=== PATIENT | female | born 1940 | race Caucasian/White ===

== ENCOUNTER 2016-09-08 04:11 | Inpatient (IN) | payer MEDICARE ==
[~2016-09-08] VITALS: Ht 157.5 cm; Wt 54.4 kg
[~2016-09-08 04:11] MED LIST: ACET-868 PO; ASCO500C16 PO; ASPI81TA2 PO; ATOR40TA PO; FURO20TA PO; HYDR-4076 PO; ISOS20TA8 PO; LOPE1LIQ56 PO; MAGN400O6 PV; ZINC220C8 PO
[2016-09-08] MEDS ORDERED: DEXAMETHASONE SOD PHOSPHATE 10 MG/ML VIAL IV ONE (04:30)
[2016-09-08] MEDS ORDERED: IPRATROPIUM NEB FS 0.5 MG/2.5 ML AMPUL.NEB NEB ONE (04:30)
[2016-09-08] MEDS ORDERED: ALBUTEROL FS 2.5 MG/3 ML VIAL.NEB CONTNEB ONE (04:30)
[2016-09-08] MEDS ORDERED: ALBUTEROL FS 2.5 MG/3 ML VIAL.NEB ONE (04:32)
[2016-09-08] MEDS ORDERED: IPRATROPIUM NEB FS 0.5 MG/2.5 ML AMPUL.NEB ONE (04:32)
[2016-09-08] MEDS ORDERED: DEXAMETHASONE SOD PHOSPHATE 10 MG/ML VIAL ONE (04:47)
[2016-09-08] MEDS ORDERED: ONDANSETRON HCL/PF 4 MG/2 ML VIAL ONE (04:56)
[2016-09-08 04:59] LABS: ABG BASE EXCESS -2.2 mmol/L; ABG HCO3 22.1 mmol/L; ABG PCO2 36.3 mmHg (35.0-45.0); ABG PH 7.402 (7.350-7.450); ABG PO2 54.9 mmHg (75.0-100.0); ABG TOTAL HEMOGLOBIN 11.8 G/dL (12.0-16.0); O2Hb 85.7 % (94.0-97.0)
[2016-09-08 05:15] LABS: BASOPHILS # (AUTO) 0.1 /CMM (0.0-0.2); BASOPHILS % (AUTO) 0.7 % (0.0-2.0); DIFF TOTAL % 100 %; EOSINOPHILS # (AUTO) 0.1 /CMM (0.0-0.7); EOSINOPHILS % (AUTO) 1.2 % (0.0-6.0); HEMATOCRIT 32 % (33-45); HEMOGLOBIN 10.5 g/dL (11.5-14.8); LYMPHOCYTES # (AUTO) 1.4 /CMM (0.8-4.8); LYMPHOCYTES % (AUTO) 12.8 % (20.0-44.0); MEAN CORPUSCULAR HEMOGLOBIN 34 PG (26.0-33.0); MEAN CORPUSCULAR HGB CONC 33 g/dl (31.0-36.0); MEAN CORPUSCULAR VOLUME 102 fL (82-100); MONOCYTES # (AUTO) 0.7 /CMM (0.1-1.30); NEUTROPHILS # (AUTO) 8.9 /CMM (1.8-8.9); NEUTROPHILS % (AUTO) 79.3 % (43.0-81.0); PLATELET COUNT (AUTO) 309 /CMM (150-450); RED BLOOD CELL COUNT(AUTO) 3.09 MIL/uL (4.0-5.2); WHITE BLOOD COUNT (AUTO) 11.2 K/uL (4.3-11.0)
[2016-09-08 05:25] LABS: CALCIUM, SERUM 8.6 mg/dL (8.5-10.1); CREATININE 3.1 mg/dL (0.6-1.3); POTASSIUM 4.5 mmol/L (3.5-5.1)
[2016-09-08 05:33] LABS: TROPONIN I 0.334 ng/mL (0.00-0.056)
[2016-09-08] MEDS ORDERED: IV SET PRIMARY PUMP SET 1 EA INFUS.SET MC ONE ×3 (06:10→13:38)
[2016-09-08] MEDS ORDERED: LEVOFLOXACIN 750 MG /D5W 150ML 150 ML IV ONE (06:10)
[2016-09-08] MEDS: LEVOFLOXACIN 750 MG /D5W 150ML 750 MG in PREMIX 1 EA IV SCH (06:25)
[2016-09-08] MEDS ORDERED: ASPIRIN 81 MG TAB.CHEW ONE (06:43)
[2016-09-08] MEDS ORDERED: ASPIRIN 325 MG TABLET PO ONE (07:00)
[2016-09-08] MEDS ORDERED: PIPERACILLIN /TAZOBACTAM 3.375 G in IV D5W 50 ML IV ONE (07:30)
[2016-09-08] MEDS ORDERED: VANCOMYCIN 1 GM in IV D5W 250 ML IV ONE (07:30)
[2016-09-08 09:00] VITALS: BP 150/54
[2016-09-08] MEDS ORDERED: IPRATROPIUM NEB FS 0.5 MG/2.5 ML AMPUL.NEB NEB PRN (11:30)
[2016-09-08] MEDS ORDERED: DEXTROSE 50%-WATER 50 ML DISP.SYRIN IV PRN (11:30)
[2016-09-08] MEDS: BLOOD SUGAR DIAGNOSTIC 1 EACH STRIP IN SCH ×3 (12:00→22:45)
[2016-09-08] MEDS: MONTELUKAST SODIUM (10MG) 10 MG TABLET PO SCH (12:16)
[2016-09-08] MEDS: methylPREDNISolone SOD SUCC 40 MG/ML VIAL IV SCH ×2 (12:16→23:05)
[2016-09-08] MEDS: INSULIN REGULAR, HUMAN 100 UNIT/ML 3 ML VIAL SQ PRN ×2 (13:35→17:16)
[2016-09-08] MEDS: ASPIRIN 81 MG TAB.CHEW PO SCH (13:46)
[2016-09-08] MEDS: CEFTRIAXONE 1 G in IV D5W 50 ML IV SCH (13:47)
[2016-09-08] MEDS: IPRATROPIUM NEB FS 0.5 MG/2.5 ML AMPUL.NEB NEB SCH ×3 (14:47→23:45)
[2016-09-08 16:00] VITALS: BP 144/70
[2016-09-08 20:20] VITALS: BP 137/71
[2016-09-08] MEDS: ATORVASTATIN 10 MG TABLET PO SCH (23:04)
[2016-09-09 00:49] VITALS: BP 152/59
[2016-09-09] MEDS: IPRATROPIUM NEB FS 0.5 MG/2.5 ML AMPUL.NEB NEB SCH ×7 (03:28→23:08)
[2016-09-09 04:46] VITALS: BP 132/61
[2016-09-09] MEDS: LEVOFLOXACIN 750 MG /D5W 150ML 750 MG in PREMIX 1 EA IV SCH (06:17)
[2016-09-09] MEDS ORDERED: IV SET PRIMARY PUMP SET 1 EA INFUS.SET MC ONE (06:20)
[2016-09-09] MEDS ORDERED: IV NS 0.9% 250 ML IV ONE (06:20)
[2016-09-09] MEDS ORDERED: SECONDARY IV SET 1 EA INFUS.SET MC ONE (06:20)
[2016-09-09] MEDS: methylPREDNISolone SOD SUCC 40 MG/ML VIAL IV SCH ×3 (06:25→20:00)
[2016-09-09] MEDS: BLOOD SUGAR DIAGNOSTIC 1 EACH STRIP IN SCH ×4 (06:38→21:34)
[2016-09-09 06:57] VITALS: BP 158/74
[2016-09-09] MEDS: ASPIRIN 81 MG TAB.CHEW PO SCH (08:45)
[2016-09-09] MEDS: MONTELUKAST SODIUM (10MG) 10 MG TABLET PO SCH (08:45)
[2016-09-09] MEDS: ACETAMINOPHEN 325 MG TABLET PO PRN ×2 (13:15→20:00)
[2016-09-09] MEDS: CEFTRIAXONE 1 G in IV D5W 50 ML IV SCH (13:15)
[2016-09-09] MEDS: DIPHENOXYLATE HCL/ATROP SULF 1 UDTAB TABLET PO PRN (13:45)
[2016-09-09 20:00] VITALS: BP 174/74
[2016-09-09] MEDS ORDERED: CLONIDINE HCL 0.1 MG TABLET ONE (21:21)
[2016-09-09] MEDS ORDERED: MENTHOL/CETYLPYRD (CEPACOL) 1 LOZ LOZENGE ONE (21:22)
[2016-09-09] MEDS ORDERED: CLONIDINE HCL 0.1 MG TABLET PO PRN (21:30)
[2016-09-09] MEDS ORDERED: MENTHOL/CETYLPYRD (CEPACOL) 1 LOZ LOZENGE PO PRN (21:30)
[2016-09-09] MEDS: ATORVASTATIN 10 MG TABLET PO SCH (21:35)
[2016-09-10] VITALS: BP 159/70
[2016-09-10] MEDS: IPRATROPIUM NEB FS 0.5 MG/2.5 ML AMPUL.NEB NEB SCH ×6 (03:24→23:06)
[2016-09-10 04:00] VITALS: BP 148/99
[2016-09-10] MEDS: methylPREDNISolone SOD SUCC 40 MG/ML VIAL IV SCH ×3 (04:23→22:21)
[2016-09-10] MEDS: BLOOD SUGAR DIAGNOSTIC 1 EACH STRIP IN SCH ×2 (07:30→11:27)
[2016-09-10 08:00] VITALS: BP 157/68
[2016-09-10] MEDS: MONTELUKAST SODIUM (10MG) 10 MG TABLET PO SCH (08:48)
[2016-09-10] MEDS: ASPIRIN 81 MG TAB.CHEW PO SCH (08:48)
[2016-09-10 10:00] VITALS: BP 157/68
[2016-09-10] MEDS: CEFTRIAXONE 1 G in IV D5W 50 ML IV SCH (11:22)
[2016-09-10] MEDS ORDERED: SECONDARY IV SET 1 EA INFUS.SET MC ONE (11:30)
[2016-09-10] MEDS: INSULIN REGULAR, HUMAN 100 UNIT/ML 3 ML VIAL SQ PRN (11:33)
[2016-09-10 16:00] VITALS: BP 157/93
[2016-09-10] MEDS: ISOSORBIDE DINITRATE (10MG) 10 MG TABLET PO SCH (16:22)
[2016-09-10] MEDS: hydrALAZINE HCL 25 MG TABLET PO SCH (16:23)
[2016-09-10 20:00] VITALS: BP 165/74
[2016-09-10] MEDS: ATORVASTATIN 10 MG TABLET PO SCH (22:22)
[2016-09-11] MEDS: IPRATROPIUM NEB FS 0.5 MG/2.5 ML AMPUL.NEB NEB SCH ×4 (04:00→23:44)
[2016-09-11] MEDS: methylPREDNISolone SOD SUCC 40 MG/ML VIAL IV SCH ×3 (04:00→21:02)
[2016-09-11 08:00] VITALS: BP 150/71
[2016-09-11] MEDS: MONTELUKAST SODIUM (10MG) 10 MG TABLET PO SCH (09:07)
[2016-09-11] MEDS: ASPIRIN 81 MG TAB.CHEW PO SCH (09:07)
[2016-09-11] MEDS: ISOSORBIDE DINITRATE (10MG) 10 MG TABLET PO SCH ×2 (09:08→17:37)
[2016-09-11] MEDS: hydrALAZINE HCL 25 MG TABLET PO SCH ×2 (09:08→17:37)
[2016-09-11] MEDS: CEFTRIAXONE 1 G in IV D5W 50 ML IV SCH (12:06)
[2016-09-11 16:00] VITALS: BP 164/76
[2016-09-11] MEDS: DIPHENOXYLATE HCL/ATROP SULF 1 UDTAB TABLET PO PRN (16:56)
[2016-09-11 20:00] VITALS: BP 174/78
[2016-09-11 20:32] VITALS: BP 174/78
[2016-09-11] MEDS: CARVEDILOL 3.125 MG TABLET PO SCH (21:03)
[2016-09-11] MEDS: ATORVASTATIN 10 MG TABLET PO SCH (21:04)
[2016-09-12] MEDS: IPRATROPIUM NEB FS 0.5 MG/2.5 ML AMPUL.NEB NEB SCH ×5 (03:03→23:08)
[2016-09-12] MEDS: methylPREDNISolone SOD SUCC 40 MG/ML VIAL IV SCH ×3 (04:08→21:56)
[2016-09-12] MEDS: ACETAMINOPHEN 325 MG TABLET PO PRN (04:08)
[2016-09-12 08:00] VITALS: BP 168/77
[2016-09-12] MEDS: ISOSORBIDE DINITRATE (10MG) 10 MG TABLET PO SCH ×2 (08:05→16:52)
[2016-09-12] MEDS: CARVEDILOL 3.125 MG TABLET PO SCH ×2 (08:05→21:58)
[2016-09-12] MEDS: hydrALAZINE HCL 25 MG TABLET PO SCH ×2 (08:06→16:52)
[2016-09-12] MEDS: MONTELUKAST SODIUM (10MG) 10 MG TABLET PO SCH (08:06)
[2016-09-12] MEDS: ASPIRIN 81 MG TAB.CHEW PO SCH (08:06)
[2016-09-12] MEDS: DIPHENOXYLATE HCL/ATROP SULF 1 UDTAB TABLET PO PRN ×3 (09:31→20:52)
[2016-09-12] MEDS: CEFTRIAXONE 1 G in IV D5W 50 ML IV SCH (11:17)
[2016-09-12 16:00] VITALS: BP 158/69
[2016-09-12 20:00] VITALS: BP 181/73
[2016-09-12] MEDS: ATORVASTATIN 10 MG TABLET PO SCH (21:59)
[2016-09-13] MEDS: IPRATROPIUM NEB FS 0.5 MG/2.5 ML AMPUL.NEB NEB SCH ×4 (02:59→16:05)
[2016-09-13] MEDS: methylPREDNISolone SOD SUCC 40 MG/ML VIAL IV SCH ×2 (05:00→13:34)
[2016-09-13] MEDS: DIPHENOXYLATE HCL/ATROP SULF 1 UDTAB TABLET PO PRN ×2 (06:58→15:29)
[2016-09-13 08:00] VITALS: BP 165/67
[2016-09-13] MEDS: ASPIRIN 81 MG TAB.CHEW PO SCH (09:16)
[2016-09-13] MEDS: MONTELUKAST SODIUM (10MG) 10 MG TABLET PO SCH (09:16)
[2016-09-13] MEDS: ISOSORBIDE DINITRATE (10MG) 10 MG TABLET PO SCH (09:17)
[2016-09-13 09:18] VITALS: BP 165/67
[2016-09-13] MEDS: hydrALAZINE HCL 25 MG TABLET PO SCH (09:18)
[2016-09-13] MEDS: CARVEDILOL 3.125 MG TABLET PO SCH (09:18)
[2016-09-13] MEDS: CEFTRIAXONE 1 G in IV D5W 50 ML IV SCH (11:17)
== END 2016-09-13 16:15 | disposition home or self-care (01) | DRG 193 ==
LOC: ER 04:12 → TELE 08:38 → MED 09-10 11:02
PROVIDERS: ADMIT Internal Medicine; ATTEND Internal Medicine
PROC: 5A1D60Z (ICD-10-PCS; principal; 2016-09-08)
DX: J15.9 Unspecified bacterial pneumonia (principal); N18.6 End stage renal disease; J96.90 Respiratory failure, unspecified, unspecified whether with hypoxia or hypercapnia; I21.4 Non-ST elevation (NSTEMI) myocardial infarction; J44.1 Chronic obstructive pulmonary disease with (acute) exacerbation; I13.2 Hypertensive heart and chronic kidney disease with heart failure and with stage 5 chronic kidney disease, or end stage renal disease; I50.22 Chronic systolic (congestive) heart failure; I25.10 Atherosclerotic heart disease of native coronary artery without angina pectoris; Z99.2 Dependence on renal dialysis; Z95.1 Presence of aortocoronary bypass graft; Z91.041 Radiographic dye allergy status; D63.8 Anemia in other chronic diseases classified elsewhere; E03.9 Hypothyroidism, unspecified; E87.5 Hyperkalemia; I25.5 Ischemic cardiomyopathy; J45.909 Unspecified asthma, uncomplicated; Z87.891 Personal history of nicotine dependence; T38.0X5A Adverse effect of glucocorticoids and synthetic analogues, initial encounter; R73.9 Hyperglycemia, unspecified
CPT/HCPCS: 36415; 36600; 71010-TC; 80048-TC; 82962-TC; 83880; 84484-TC; 85025-TC; 87040-TC; 87081-TC; 87400; 90935-TC; 94799-TC; A4216; A4606; A6402; J0696; J1100; J1815; J1956; J2405; J2543; J2920; J3370; J7050; J7060; Z7610

== ENCOUNTER 2016-10-06 11:54 | Inpatient (IN) | payer MEDICARE ==
[~2016-10-06] VITALS: Ht 157.5 cm; Wt 49.9 kg
[~2016-10-06 11:54] MED LIST changes: -ACET-868 PO; -ASCO500C16 PO; +FURO-145 PO; -FURO20TA PO; +MAGN400O6 PO; -MAGN400O6 PV
[2016-10-06 12:19] LABS: BASOPHILS # (AUTO) 0.7 /CMM (0.0-0.2); BASOPHILS % (AUTO) 4.9 % (0.0-2.0); DIFF TOTAL % 100 %; EOSINOPHILS % (AUTO) 0.1 % (0.0-6.0); HEMATOCRIT 34 % (33-45); HEMOGLOBIN 10.8 g/dL (11.5-14.8); LYMPHOCYTES # (AUTO) 1.1 /CMM (0.8-4.8); LYMPHOCYTES % (AUTO) 8.1 % (20.0-44.0); MEAN CORPUSCULAR HEMOGLOBIN 33 PG (26.0-33.0); MEAN CORPUSCULAR HGB CONC 32 g/dl (31.0-36.0); MEAN CORPUSCULAR VOLUME 105 fL (82-100); MONOCYTES # (AUTO) 0.6 /CMM (0.1-1.30); MONOCYTES % (AUTO) 4.3 % (2.0-12.0); NEUTROPHILS % (AUTO) 82.6 % (43.0-81.0); PLATELET COUNT (AUTO) 233 /CMM (150-450); RED BLOOD CELL COUNT(AUTO) 3.24 MIL/uL (4.0-5.2); WHITE BLOOD COUNT (AUTO) 13.4 K/uL (4.3-11.0)
[2016-10-06 12:27] LABS: ANION GAP 15 (5-14); CALCIUM, SERUM 8.1 mg/dL (8.5-10.1); CARBON DIOXIDE 26 mmol/L (21-32); CHLORIDE 96 mmol/L (98-107); CREATININE 3.9 mg/dL (0.6-1.3); GLUCOSE 101 mg/dL (74-106); POTASSIUM 4.9 mmol/L (3.5-5.1); SODIUM SERUM 132 mmol/L (136-145); UREA NITROGEN, BLOOD 61 mg/dL (7-18)
[2016-10-06 12:32] LABS: ACETAMINOPHEN 10 ug/ml (10-30); ALANINE AMINOTRANSFERASE 27 U/L (12-78); ALBUMIN 2.4 g/dL (3.4-5.0); ASPARTATE AMINOTRANSFERASE 27 U/L (15-37); BILIRUBIN,DIRECT 0.2 mg/dL (0.0-0.2); BILIRUBIN,TOTAL 0.6 mg/dL (0.2-1.0); INDIRECT BILIRUBIN 0.4 mg/dL (0.0-1.1); TOTAL PROTEIN, SERUM 5.5 g/dL (6.4-8.2)
[2016-10-06 12:33] LABS: SALICYLATE 0.3 mg/dL (2.8-20.0)
[2016-10-06] MEDS ORDERED: TIOT4MIS2 IH (12:48)
[2016-10-06] MEDS ORDERED: IPRA0.2S9 NEB (12:48)
[2016-10-06] MEDS ORDERED: IPRA0.2S9 INH (12:48)
[2016-10-06] MEDS ORDERED: CRAN425C PO (12:48)
[2016-10-06] MEDS ORDERED: ISOS5TAB3 PO (12:48)
[2016-10-06] MEDS ORDERED: LISI2.5T2 PO (12:48)
[2016-10-06] MEDS ORDERED: LEVA0.6320 NEB (12:48)
[2016-10-06] MEDS ORDERED: CARV6.25 PO (12:48)
[2016-10-06] MEDS ORDERED: CLOP75TA2 PO (12:48)
[2016-10-06] MEDS ORDERED: PRED10TA PO (12:48)
[2016-10-06] MEDS ORDERED: MOME13HF4 IH (12:48)
[2016-10-06] MEDS ORDERED: PANT40TA2 PO (12:48)
[2016-10-06] MEDS ORDERED: ACET-868 PO (12:48)
[2016-10-06] MEDS ORDERED: ONDA4TAB5 PO (12:48)
[2016-10-06] MEDS ORDERED: MONT10TA22 PO (12:48)
[2016-10-06] MEDS ORDERED: ATOR80TA PO (12:48)
[2016-10-06] MEDS ORDERED: HEPA500014 SQ (12:48)
[2016-10-06] MEDS ORDERED: HYDR-552 PO (12:48)
[2016-10-06] MEDS ORDERED: ONDANSETRON HCL/PF 4 MG/2 ML VIAL IV PRN (18:30)
[2016-10-06] MEDS ORDERED: HYDROCODONE/APAP 5/325MG 1 EACH TABLET PO PRN (18:30)
[2016-10-06] MEDS ORDERED: MAGNESIUM HYDROXIDE 30 ML UDC PO PRN (18:30)
[2016-10-06] MEDS ORDERED: CEFEPIME 1 GM in IV D5W 50 ML IV SCH (18:30)
[2016-10-06] MEDS ORDERED: FEE PK DOSING 1 MIN EA MC ONE (18:41)
[2016-10-06] MEDS ORDERED: VANCOMYCIN 1 GM in IV D5W 250 ML IV ONE (19:00)
[2016-10-06] MEDS: IPRATROPIUM NEB FS 0.5 MG/2.5 ML AMPUL.NEB INH SCH (19:52)
[2016-10-06 20:25] VITALS: BP 107/58
[2016-10-06] MEDS ORDERED: Z GUARD REMEDY 2 OZ OINT TP PRN (20:30)
[2016-10-06] MEDS: CEFEPIME 1 GM in IV D5W 50 ML IV SCH (21:25)
[2016-10-06] MEDS: HEPARIN SODIUM, PORCINE 5000 UNITS/1 ML VIAL SQ SCH (21:28)
[2016-10-06] MEDS ORDERED: LOPERAMIDE HCL (2 MG CAP) 2 MG CAPSULE PO ONE (21:39)
[2016-10-06] MEDS: LOPERAMIDE HCL (2 MG CAP) 2 MG CAPSULE PO PRN (21:42)
[2016-10-06] MEDS ORDERED: IV SET PRIMARY PUMP SET 1 EA INFUS.SET MC ONE (21:51)
[2016-10-06] MEDS ORDERED: SECONDARY IV SET 1 EA INFUS.SET MC ONE ×2 (21:51→23:11)
[2016-10-06] MEDS ORDERED: IV NS 0.9% 250 ML IV ONE (21:52)
[2016-10-06] MEDS: MONTELUKAST SODIUM (10MG) 10 MG TABLET PO SCH (22:11)
[2016-10-06] MEDS: CARVEDILOL 6.25 MG TABLET PO SCH (22:12)
[2016-10-07] MEDS: IPRATROPIUM NEB FS 0.5 MG/2.5 ML AMPUL.NEB NEB SCH ×3 (01:32→11:29)
[2016-10-07] MEDS: IPRATROPIUM NEB FS 0.5 MG/2.5 ML AMPUL.NEB INH SCH ×4 (01:33→20:51)
[2016-10-07 02:44] LABS: KETONES,URINE NEGATIVE (NEGATIVE); LEUKOCYTE ESTERASE ,URINE NEGATIVE (NEGATIVE)
[2016-10-07 02:56] LABS: ADD UA MICROSCOPIC YES
[2016-10-07 03:05] LABS: ADD URINE CULTURE NO; RBC,URINE 0-2 /HPF (0-2); WBC,URINE 0-2 /HPF (0-3)
[2016-10-07] MEDS ORDERED: LOPERAMIDE HCL (2 MG CAP) 2 MG CAPSULE PO ONE (04:13)
[2016-10-07] MEDS: LOPERAMIDE HCL (2 MG CAP) 2 MG CAPSULE PO PRN ×2 (04:19→22:10)
[2016-10-07 06:45] LABS: DIFF TOTAL % 100 %; EOSINOPHILS % (AUTO) 0.5 % (0.0-6.0); HEMATOCRIT 34 % (33-45); HEMOGLOBIN 10.8 g/dL (11.5-14.8); LYMPHOCYTES # (AUTO) 0.7 /CMM (0.8-4.8); LYMPHOCYTES % (AUTO) 6.5 % (20.0-44.0); MEAN CORPUSCULAR HEMOGLOBIN 34 PG (26.0-33.0); MEAN CORPUSCULAR HGB CONC 32 g/dl (31.0-36.0); MEAN CORPUSCULAR VOLUME 106 fL (82-100); MONOCYTES # (AUTO) 0.3 /CMM (0.1-1.30); MONOCYTES % (AUTO) 2.7 % (2.0-12.0); NEUTROPHILS # (AUTO) 9.8 /CMM (1.8-8.9); NEUTROPHILS % (AUTO) 90.3 % (43.0-81.0); PLATELET COUNT (AUTO) 200 /CMM (150-450); RED BLOOD CELL COUNT(AUTO) 3.16 MIL/uL (4.0-5.2); WHITE BLOOD COUNT (AUTO) 10.8 K/uL (4.3-11.0)
[2016-10-07 07:04] LABS: CALCIUM, SERUM 8.3 mg/dL (8.5-10.1); CREATININE 3.1 mg/dL (0.6-1.3); PHOSPHORUS 5.4 mg/dL (2.5-4.9); POTASSIUM 4.7 mmol/L (3.5-5.1)
[2016-10-07 07:11] VITALS: BP 156/65
[2016-10-07 08:15] LABS: BAND % (MANUAL) 2 % (0.0-5.0); EOSINOPHILS % (MANUAL) 1 % (0-4); LYMPHOCYTES % (MANUAL) 7 % (16-48); PLATELET ESTIMATE ADEQUATE
[2016-10-07 08:16] LABS: ANISOCYTOSIS 2+
[2016-10-07] MEDS ORDERED: HYDROGEL DRESSING 90 GM TUBE TP PRN (09:30)
[2016-10-07] MEDS: CLOPIDOGREL BISULFATE 75 MG TABLET PO SCH (09:35)
[2016-10-07] MEDS: ISOSORBIDE DINITRATE (5MG) 5 MG TABLET PO SCH ×3 (09:36→16:18)
[2016-10-07] MEDS: PANTOPRAZOLE 40 MG TABLET.DR PO SCH (09:36)
[2016-10-07] MEDS: CARVEDILOL 6.25 MG TABLET PO SCH ×2 (09:37→21:43)
[2016-10-07] MEDS: ASPIRIN EC 81 MG TABLET.DR PO SCH (09:37)
[2016-10-07] MEDS: predniSONE 10 MG TABLET PO SCH (09:37)
[2016-10-07] MEDS: HEPARIN SODIUM, PORCINE 5000 UNITS/1 ML VIAL SQ SCH ×2 (09:40→21:44)
[2016-10-07] MEDS: CLOTRIMAZOLE/BETAMETASONE DIPROPIONATE 15 GM TUBE TP SCH ×2 (11:50→16:17)
[2016-10-07] MEDS: HYDROGEL DRESSING 90 GM TUBE TP SCH (11:50)
[2016-10-07 16:00] VITALS: BP 136/54
[2016-10-07] MEDS: CEFEPIME 1 GM in IV D5W 50 ML IV SCH (18:31)
[2016-10-07] MEDS ORDERED: VANCOMYCIN 500 MG in IV D5W 100 ML IV PRN (19:00)
[2016-10-07 20:00] VITALS: BP 142/47
[2016-10-07] MEDS: MONTELUKAST SODIUM (10MG) 10 MG TABLET PO SCH (21:42)
[2016-10-08] MEDS: IPRATROPIUM NEB FS 0.5 MG/2.5 ML AMPUL.NEB INH SCH ×3 (02:02→19:46)
[2016-10-08 07:08] LABS: DIFF TOTAL % 100 %; EOSINOPHILS # (AUTO) 0.1 /CMM (0.0-0.7); EOSINOPHILS % (AUTO) 0.9 % (0.0-6.0); HEMATOCRIT 32 % (33-45); HEMOGLOBIN 10.1 g/dL (11.5-14.8); LYMPHOCYTES # (AUTO) 0.7 /CMM (0.8-4.8); LYMPHOCYTES % (AUTO) 6.4 % (20.0-44.0); MEAN CORPUSCULAR HEMOGLOBIN 34 PG (26.0-33.0); MEAN CORPUSCULAR HGB CONC 32 g/dl (31.0-36.0); MEAN CORPUSCULAR VOLUME 107 fL (82-100); MONOCYTES # (AUTO) 0.1 /CMM (0.1-1.30); NEUTROPHILS # (AUTO) 9.9 /CMM (1.8-8.9); NEUTROPHILS % (AUTO) 91.7 % (43.0-81.0); PLATELET COUNT (AUTO) 178 /CMM (150-450); RED BLOOD CELL COUNT(AUTO) 2.96 MIL/uL (4.0-5.2); WHITE BLOOD COUNT (AUTO) 10.8 K/uL (4.3-11.0)
[2016-10-08 07:34] LABS: CALCIUM, SERUM 7.9 mg/dL (8.5-10.1); CREATININE 4.1 mg/dL (0.6-1.3); POTASSIUM 5.5 mmol/L (3.5-5.1)
[2016-10-08] MEDS: CARVEDILOL 6.25 MG TABLET PO SCH ×2 (08:45→21:00)
[2016-10-08] MEDS: predniSONE 10 MG TABLET PO SCH (08:45)
[2016-10-08] MEDS: LOPERAMIDE HCL (2 MG CAP) 2 MG CAPSULE PO PRN (08:45)
[2016-10-08] MEDS: ASPIRIN EC 81 MG TABLET.DR PO SCH (08:46)
[2016-10-08] MEDS: PANTOPRAZOLE 40 MG TABLET.DR PO SCH (08:46)
[2016-10-08] MEDS: ISOSORBIDE DINITRATE (5MG) 5 MG TABLET PO SCH ×3 (08:46→16:45)
[2016-10-08] MEDS: CLOPIDOGREL BISULFATE 75 MG TABLET PO SCH (08:46)
[2016-10-08] MEDS: HEPARIN SODIUM, PORCINE 5000 UNITS/1 ML VIAL SQ SCH ×2 (08:51→22:39)
[2016-10-08] MEDS: HYDROGEL DRESSING 90 GM TUBE TP SCH (08:56)
[2016-10-08] MEDS: CLOTRIMAZOLE/BETAMETASONE DIPROPIONATE 15 GM TUBE TP SCH ×2 (08:56→17:00)
[2016-10-08] MEDS ORDERED: LORAZEPAM 1 MG TABLET PO ONE (09:30)
[2016-10-08] MEDS: IPRATROPIUM NEB FS 0.5 MG/2.5 ML AMPUL.NEB NEB SCH (13:45)
[2016-10-08 19:44] VITALS: BP 151/53
[2016-10-08 20:00] VITALS: BP 151/53
[2016-10-08] MEDS: CEFEPIME 1 GM in IV D5W 50 ML IV SCH (22:35)
[2016-10-08] MEDS: MONTELUKAST SODIUM (10MG) 10 MG TABLET PO SCH (22:41)
[2016-10-08] MEDS: ATORVASTATIN 10 MG TABLET PO SCH (22:44)
[2016-10-09] VITALS (7 sets, daily range): BP systolic 126–170; BP diastolic 50–73
[2016-10-09] MEDS: IPRATROPIUM NEB FS 0.5 MG/2.5 ML AMPUL.NEB INH SCH ×4 (01:32→20:06)
[2016-10-09] MEDS: CARVEDILOL 6.25 MG TABLET PO SCH ×3 (02:24→21:49)
[2016-10-09] MEDS: QUETIAPINE FUMARATE 25 MG TABLET PO PRN ×3 (02:32→21:50)
[2016-10-09] MEDS: ASPIRIN EC 81 MG TABLET.DR PO SCH (09:47)
[2016-10-09] MEDS: PANTOPRAZOLE 40 MG TABLET.DR PO SCH (09:47)
[2016-10-09] MEDS: HEPARIN SODIUM, PORCINE 5000 UNITS/1 ML VIAL SQ SCH ×2 (09:53→21:48)
[2016-10-09] MEDS: predniSONE 10 MG TABLET PO SCH (09:55)
[2016-10-09] MEDS: ISOSORBIDE DINITRATE (5MG) 5 MG TABLET PO SCH ×3 (09:55→17:13)
[2016-10-09] MEDS: CLOTRIMAZOLE/BETAMETASONE DIPROPIONATE 15 GM TUBE TP SCH ×2 (12:26→17:14)
[2016-10-09] MEDS: HYDROGEL DRESSING 90 GM TUBE TP SCH (12:26)
[2016-10-09] MEDS: CEFEPIME 1 GM in IV D5W 50 ML IV SCH (18:17)
[2016-10-09] MEDS: ACETAMINOPHEN 325 MG TABLET PO PRN (18:36)
[2016-10-09] MEDS: MONTELUKAST SODIUM (10MG) 10 MG TABLET PO SCH (21:47)
[2016-10-09] MEDS: ATORVASTATIN 10 MG TABLET PO SCH (21:47)
[2016-10-10] MEDS: IPRATROPIUM NEB FS 0.5 MG/2.5 ML AMPUL.NEB INH SCH ×5 (02:04→20:32)
[2016-10-10 08:00] VITALS: BP 120/69
[2016-10-10] MEDS: QUETIAPINE FUMARATE 25 MG TABLET PO PRN (08:04)
[2016-10-10] MEDS: predniSONE 10 MG TABLET PO SCH (08:04)
[2016-10-10] MEDS: ASPIRIN EC 81 MG TABLET.DR PO SCH (08:49)
[2016-10-10] MEDS: PANTOPRAZOLE 40 MG TABLET.DR PO SCH (08:49)
[2016-10-10] MEDS: CARVEDILOL 6.25 MG TABLET PO SCH ×2 (08:51→21:54)
[2016-10-10] MEDS: ISOSORBIDE DINITRATE (5MG) 5 MG TABLET PO SCH ×3 (08:51→16:21)
[2016-10-10] MEDS: HYDROGEL DRESSING 90 GM TUBE TP SCH (08:54)
[2016-10-10] MEDS: HEPARIN SODIUM, PORCINE 5000 UNITS/1 ML VIAL SQ SCH ×2 (08:54→21:55)
[2016-10-10] MEDS: CLOTRIMAZOLE/BETAMETASONE DIPROPIONATE 15 GM TUBE TP SCH ×2 (08:54→16:21)
[2016-10-10 09:19] VITALS: BP 120/86
[2016-10-10] MEDS ORDERED: MORPHINE SULFATE INJ 2 MG/ML DISP.SYRIN IV PRN (15:30)
[2016-10-10] MEDS ORDERED: HYDROCODONE/APAP 5/325MG 1 EACH TABLET PO PRN (16:00)
[2016-10-10] MEDS: LOPERAMIDE HCL (2 MG CAP) 2 MG CAPSULE PO PRN (16:23)
[2016-10-10] MEDS: CEFEPIME 1 GM in IV D5W 50 ML IV SCH (18:12)
[2016-10-10 20:00] VITALS: BP_SYST 12; BP_SYST 126; BP_DIAS 58
[2016-10-10] MEDS: ATORVASTATIN 10 MG TABLET PO SCH (21:54)
[2016-10-10] MEDS: MONTELUKAST SODIUM (10MG) 10 MG TABLET PO SCH (22:01)
[2016-10-11] MEDS: IPRATROPIUM NEB FS 0.5 MG/2.5 ML AMPUL.NEB INH SCH ×4 (01:01→20:05)
[2016-10-11] MEDS: PANTOPRAZOLE 40 MG TABLET.DR PO SCH (07:30)
[2016-10-11 08:00] VITALS: BP 125/81
[2016-10-11] MEDS: HYDROGEL DRESSING 90 GM TUBE TP SCH (09:00)
[2016-10-11] MEDS: CLOTRIMAZOLE/BETAMETASONE DIPROPIONATE 15 GM TUBE TP SCH ×2 (09:00→17:00)
[2016-10-11] MEDS: ISOSORBIDE DINITRATE (5MG) 5 MG TABLET PO SCH ×3 (09:00→17:00)
[2016-10-11] MEDS: predniSONE 10 MG TABLET PO SCH ×2 (09:00→13:24)
[2016-10-11] MEDS: ASPIRIN EC 81 MG TABLET.DR PO SCH ×2 (09:00→13:24)
[2016-10-11] MEDS: HEPARIN SODIUM, PORCINE 5000 UNITS/1 ML VIAL SQ SCH ×2 (09:00→22:00)
[2016-10-11] MEDS: CARVEDILOL 6.25 MG TABLET PO SCH ×3 (09:00→20:49)
[2016-10-11] MEDS: QUETIAPINE FUMARATE 25 MG TABLET PO PRN (13:23)
[2016-10-11 16:09] VITALS: BP 140/54
[2016-10-11 19:00] VITALS: BP 159/76
[2016-10-11] MEDS: CEFEPIME 1 GM in IV D5W 50 ML IV SCH (19:00)
[2016-10-11 20:00] VITALS: BP 159/76
[2016-10-11] MEDS: MONTELUKAST SODIUM (10MG) 10 MG TABLET PO SCH (20:49)
[2016-10-11] MEDS: ATORVASTATIN 10 MG TABLET PO SCH (20:51)
[2016-10-12] MEDS: IPRATROPIUM NEB FS 0.5 MG/2.5 ML AMPUL.NEB INH SCH ×4 (02:27→20:17)
[2016-10-12 08:00] VITALS: BP 150/55
[2016-10-12] MEDS: predniSONE 10 MG TABLET PO SCH (08:39)
[2016-10-12] MEDS: ASPIRIN EC 81 MG TABLET.DR PO SCH (08:39)
[2016-10-12] MEDS: PANTOPRAZOLE 40 MG TABLET.DR PO SCH (08:39)
[2016-10-12] MEDS: ISOSORBIDE DINITRATE (5MG) 5 MG TABLET PO SCH ×3 (08:40→17:00)
[2016-10-12] MEDS: CLOTRIMAZOLE/BETAMETASONE DIPROPIONATE 15 GM TUBE TP SCH ×2 (08:40→17:00)
[2016-10-12] MEDS: CARVEDILOL 6.25 MG TABLET PO SCH ×2 (08:40→21:51)
[2016-10-12] MEDS: HYDROGEL DRESSING 90 GM TUBE TP SCH (08:40)
[2016-10-12] MEDS: HEPARIN SODIUM, PORCINE 5000 UNITS/1 ML VIAL SQ SCH ×2 (08:42→22:00)
[2016-10-12 16:00] VITALS: BP 143/59
[2016-10-12 16:36] LABS: CALCIUM, SERUM 7.5 mg/dL (8.5-10.1); CREATININE 3.3 mg/dL (0.6-1.3); DIFF TOTAL % 100 %; EOSINOPHILS % (AUTO) 0.1 % (0.0-6.0); HEMATOCRIT 25 % (33-45); HEMOGLOBIN 8.1 g/dL (11.5-14.8); LYMPHOCYTES # (AUTO) 0.3 /CMM (0.8-4.8); LYMPHOCYTES % (AUTO) 4.3 % (20.0-44.0); MEAN CORPUSCULAR HEMOGLOBIN 33 PG (26.0-33.0); MEAN CORPUSCULAR HGB CONC 32 g/dl (31.0-36.0); MEAN CORPUSCULAR VOLUME 103 fL (82-100); MONOCYTES # (AUTO) 0.1 /CMM (0.1-1.30); MONOCYTES % (AUTO) 1.1 % (2.0-12.0); NEUTROPHILS # (AUTO) 7.2 /CMM (1.8-8.9); NEUTROPHILS % (AUTO) 94.5 % (43.0-81.0); PLATELET COUNT (AUTO) 124 /CMM (150-450); POTASSIUM 5.1 mmol/L (3.5-5.1); RED BLOOD CELL COUNT(AUTO) 2.41 MIL/uL (4.0-5.2); WHITE BLOOD COUNT (AUTO) 7.7 K/uL (4.3-11.0)
[2016-10-12 17:48] LABS: ABG BASE EXCESS 4.7 mmol/L; ABG PCO2 47.8 mmHg (35.0-45.0); ABG PH 7.415 (7.350-7.450); ABG PO2 98.8 mmHg (75.0-100.0); ABG TOTAL HEMOGLOBIN 10.3 G/dL (12.0-16.0); ALLEN TEST PASSED; AaDO2 276.4 mmHg; O2Hb 94.1 % (94.0-97.0)
[2016-10-12] MEDS: CEFEPIME 1 GM in IV D5W 50 ML IV SCH (19:45)
[2016-10-12 20:00] VITALS: BP 134/74
[2016-10-12] MEDS ORDERED: VANCOMYCIN 1 GM in IV D5W 250 ML IV ONE (20:00)
[2016-10-12] MEDS: ALBUTEROL HALF STRENGTH 1.25 MG/3 ML VIAL.NEB NEB SCH (20:17)
[2016-10-12] MEDS: ATORVASTATIN 10 MG TABLET PO SCH (21:51)
[2016-10-12] MEDS: MONTELUKAST SODIUM (10MG) 10 MG TABLET PO SCH (21:51)
[2016-10-13] MEDS: QUETIAPINE FUMARATE 25 MG TABLET PO PRN ×3 (00:20→20:46)
[2016-10-13] MEDS: ALBUTEROL HALF STRENGTH 1.25 MG/3 ML VIAL.NEB NEB SCH ×4 (01:30→20:14)
[2016-10-13] MEDS: IPRATROPIUM NEB FS 0.5 MG/2.5 ML AMPUL.NEB INH SCH ×4 (01:30→20:14)
[2016-10-13 07:08] LABS: DIFF TOTAL % 100 %; EOSINOPHILS # (AUTO) 0.2 /CMM (0.0-0.7); EOSINOPHILS % (AUTO) 2.3 % (0.0-6.0); HEMATOCRIT 28 % (33-45); LYMPHOCYTES # (AUTO) 0.7 /CMM (0.8-4.8); LYMPHOCYTES % (AUTO) 8.6 % (20.0-44.0); MEAN CORPUSCULAR HEMOGLOBIN 34 PG (26.0-33.0); MEAN CORPUSCULAR HGB CONC 33 g/dl (31.0-36.0); MEAN CORPUSCULAR VOLUME 105 fL (82-100); MONOCYTES # (AUTO) 0.1 /CMM (0.1-1.30); MONOCYTES % (AUTO) 0.6 % (2.0-12.0); NEUTROPHILS # (AUTO) 6.9 /CMM (1.8-8.9); NEUTROPHILS % (AUTO) 88.5 % (43.0-81.0); PLATELET COUNT (AUTO) 135 /CMM (150-450); RED BLOOD CELL COUNT(AUTO) 2.62 MIL/uL (4.0-5.2); WHITE BLOOD COUNT (AUTO) 7.8 K/uL (4.3-11.0)
[2016-10-13 08:00] VITALS: BP 132/53
[2016-10-13 08:03] LABS: CALCIUM, SERUM 7.9 mg/dL (8.5-10.1); CREATININE 3.3 mg/dL (0.6-1.3); PHOSPHORUS 5.2 mg/dL (2.5-4.9); POTASSIUM 4.9 mmol/L (3.5-5.1)
[2016-10-13] MEDS: ASPIRIN EC 81 MG TABLET.DR PO SCH (08:43)
[2016-10-13] MEDS: predniSONE 10 MG TABLET PO SCH (08:43)
[2016-10-13] MEDS: PANTOPRAZOLE 40 MG TABLET.DR PO SCH (08:43)
[2016-10-13] MEDS: CLOTRIMAZOLE/BETAMETASONE DIPROPIONATE 15 GM TUBE TP SCH ×2 (08:45→17:47)
[2016-10-13] MEDS: HYDROGEL DRESSING 90 GM TUBE TP SCH (08:46)
[2016-10-13] MEDS: ISOSORBIDE DINITRATE (5MG) 5 MG TABLET PO SCH ×3 (09:00→17:46)
[2016-10-13] MEDS: HEPARIN SODIUM, PORCINE 5000 UNITS/1 ML VIAL SQ SCH (09:00)
[2016-10-13] MEDS: CARVEDILOL 6.25 MG TABLET PO SCH ×2 (09:00→20:48)
[2016-10-13] MEDS ORDERED: MISCELLANEOUS MED 1 EA EA XX ONE (09:30)
[2016-10-13] MEDS: hydrALAZINE HCL 10 MG TABLET PO SCH ×4 (09:41→20:47)
[2016-10-13 11:22] LABS: BAND % (MANUAL) 4 % (0.0-5.0); LYMPHOCYTES % (MANUAL) 8 % (16-48)
[2016-10-13 11:23] LABS: PLATELET ESTIMATE ADEQUATE
[2016-10-13 16:00] VITALS: BP 159/58
[2016-10-13 20:00] VITALS: BP 137/83
[2016-10-13] MEDS ORDERED: VANCOMYCIN 500 MG in IV D5W 100 ML IV PRN (20:00)
[2016-10-13 20:33] VITALS: BP 137/83
[2016-10-13] MEDS: CEFEPIME 1 GM in IV D5W 50 ML IV SCH (20:46)
[2016-10-13] MEDS ORDERED: IV SET PRIMARY PUMP SET 1 EA INFUS.SET MC ONE (20:55)
[2016-10-13] MEDS ORDERED: SECONDARY IV SET 1 EA INFUS.SET MC ONE (20:56)
[2016-10-13] MEDS ORDERED: IV NS 0.9% 250 ML IV ONE (20:56)
[2016-10-13] MEDS: ATORVASTATIN 10 MG TABLET PO SCH (21:24)
[2016-10-13] MEDS: MONTELUKAST SODIUM (10MG) 10 MG TABLET PO SCH (21:25)
[2016-10-14] MEDS: ALBUTEROL HALF STRENGTH 1.25 MG/3 ML VIAL.NEB NEB SCH ×5 (00:56→23:33)
[2016-10-14] MEDS: IPRATROPIUM NEB FS 0.5 MG/2.5 ML AMPUL.NEB INH SCH ×5 (00:56→23:33)
[2016-10-14] MEDS: hydrALAZINE HCL 10 MG TABLET PO SCH ×2 (06:09→13:14)
[2016-10-14 07:08] LABS: DIFF TOTAL % 100 %; EOSINOPHILS # (AUTO) 0.1 /CMM (0.0-0.7); EOSINOPHILS % (AUTO) 1.4 % (0.0-6.0); HEMATOCRIT 29 % (33-45); LYMPHOCYTES # (AUTO) 0.4 /CMM (0.8-4.8); LYMPHOCYTES % (AUTO) 6.1 % (20.0-44.0); MEAN CORPUSCULAR HEMOGLOBIN 33 PG (26.0-33.0); MEAN CORPUSCULAR HGB CONC 31 g/dl (31.0-36.0); MEAN CORPUSCULAR VOLUME 105 fL (82-100); MONOCYTES # (AUTO) 0.1 /CMM (0.1-1.30); MONOCYTES % (AUTO) 1.1 % (2.0-12.0); NEUTROPHILS # (AUTO) 5.9 /CMM (1.8-8.9); NEUTROPHILS % (AUTO) 91.4 % (43.0-81.0); PLATELET COUNT (AUTO) 135 /CMM (150-450); RED BLOOD CELL COUNT(AUTO) 2.72 MIL/uL (4.0-5.2); WHITE BLOOD COUNT (AUTO) 6.5 K/uL (4.3-11.0)
[2016-10-14 07:51] LABS: CALCIUM, SERUM 8.2 mg/dL (8.5-10.1); CREATININE 3.2 mg/dL (0.6-1.3); PHOSPHORUS 4.8 mg/dL (2.5-4.9); POTASSIUM 4.6 mmol/L (3.5-5.1)
[2016-10-14 08:00] VITALS: BP 152/57
[2016-10-14] MEDS: CARVEDILOL 6.25 MG TABLET PO SCH ×2 (08:44→21:00)
[2016-10-14] MEDS: PANTOPRAZOLE 40 MG TABLET.DR PO SCH (08:44)
[2016-10-14] MEDS: ASPIRIN EC 81 MG TABLET.DR PO SCH (08:44)
[2016-10-14] MEDS: ISOSORBIDE DINITRATE (5MG) 5 MG TABLET PO SCH ×3 (08:45→16:56)
[2016-10-14] MEDS: HYDROGEL DRESSING 90 GM TUBE TP SCH (08:45)
[2016-10-14] MEDS: predniSONE 10 MG TABLET PO SCH (08:45)
[2016-10-14] MEDS: CLOTRIMAZOLE/BETAMETASONE DIPROPIONATE 15 GM TUBE TP SCH ×2 (08:46→16:55)
[2016-10-14] MEDS: QUETIAPINE FUMARATE 25 MG TABLET PO PRN ×3 (11:37→23:09)
[2016-10-14] MEDS ORDERED: EPOETIN ALFA (10,000 UNIT) 10,000 UNIT/ML VIAL SQ ONE (12:00)
[2016-10-14 16:00] VITALS: BP 143/67
[2016-10-14 16:30] VITALS: BP 143/67
[2016-10-14] MEDS: RENAL NOVASOURCE (8OZ) 1 EA BOX PO SCH (16:55)
[2016-10-14 20:00] VITALS: BP 138/51
[2016-10-14 20:25] LABS: ABG BASE EXCESS 5.8 mmol/L; ABG HCO3 30.7 mmol/L; ABG PCO2 46.4 mmHg (35.0-45.0); ABG PH 7.438 (7.350-7.450); ABG PO2 106.5 mmHg (75.0-100.0); ABG TOTAL HEMOGLOBIN 9.6 G/dL (12.0-16.0); ALLEN TEST Pass; AaDO2 277.5 mmHg; O2Hb 94.8 % (94.0-97.0)
[2016-10-14] MEDS: hydrALAZINE HCL 25 MG TABLET PO SCH (21:00)
[2016-10-14] MEDS: LOPERAMIDE HCL (2 MG CAP) 2 MG CAPSULE PO PRN (22:50)
[2016-10-14] MEDS: ATORVASTATIN 10 MG TABLET PO SCH (22:59)
[2016-10-14] MEDS: MONTELUKAST SODIUM (10MG) 10 MG TABLET PO SCH (22:59)
[2016-10-15] MEDS: hydrALAZINE HCL 25 MG TABLET PO SCH ×3 (05:00→21:56)
[2016-10-15 07:23] LABS: BASOPHILS % (AUTO) 0.1 % (0.0-2.0); DIFF TOTAL % 100 %; EOSINOPHILS # (AUTO) 0.1 /CMM (0.0-0.7); EOSINOPHILS % (AUTO) 1.2 % (0.0-6.0); HEMATOCRIT 28 % (33-45); HEMOGLOBIN 8.9 g/dL (11.5-14.8); LYMPHOCYTES # (AUTO) 0.8 /CMM (0.8-4.8); LYMPHOCYTES % (AUTO) 13.5 % (20.0-44.0); MEAN CORPUSCULAR HEMOGLOBIN 33 PG (26.0-33.0); MEAN CORPUSCULAR HGB CONC 32 g/dl (31.0-36.0); MEAN CORPUSCULAR VOLUME 105 fL (82-100); MONOCYTES # (AUTO) 0.2 /CMM (0.1-1.30); MONOCYTES % (AUTO) 3.4 % (2.0-12.0); NEUTROPHILS # (AUTO) 5.1 /CMM (1.8-8.9); NEUTROPHILS % (AUTO) 81.8 % (43.0-81.0); PLATELET COUNT (AUTO) 109 /CMM (150-450); RED BLOOD CELL COUNT(AUTO) 2.67 MIL/uL (4.0-5.2); WHITE BLOOD COUNT (AUTO) 6.3 K/uL (4.3-11.0)
[2016-10-15] MEDS: ALBUTEROL HALF STRENGTH 1.25 MG/3 ML VIAL.NEB NEB SCH ×3 (07:26→20:25)
[2016-10-15] MEDS: IPRATROPIUM NEB FS 0.5 MG/2.5 ML AMPUL.NEB INH SCH ×3 (07:26→20:24)
[2016-10-15 07:45] LABS: CALCIUM, SERUM 8.1 mg/dL (8.5-10.1); CREATININE 2.7 mg/dL (0.6-1.3); PHOSPHORUS 3.8 mg/dL (2.5-4.9); POTASSIUM 5.1 mmol/L (3.5-5.1)
[2016-10-15 08:00] VITALS: BP 132/62
[2016-10-15] MEDS: RENAL NOVASOURCE (8OZ) 1 EA BOX PO SCH ×2 (08:00→17:24)
[2016-10-15] MEDS: QUETIAPINE FUMARATE 25 MG TABLET PO PRN (09:04)
[2016-10-15] MEDS: ISOSORBIDE DINITRATE (5MG) 5 MG TABLET PO SCH ×3 (09:05→17:24)
[2016-10-15] MEDS: PANTOPRAZOLE 40 MG TABLET.DR PO SCH (09:06)
[2016-10-15] MEDS: predniSONE 10 MG TABLET PO SCH (09:06)
[2016-10-15] MEDS: HYDROGEL DRESSING 90 GM TUBE TP SCH (09:07)
[2016-10-15] MEDS: CARVEDILOL 6.25 MG TABLET PO SCH ×2 (09:07→21:55)
[2016-10-15] MEDS: ASPIRIN EC 81 MG TABLET.DR PO SCH (09:07)
[2016-10-15] MEDS: CLOTRIMAZOLE/BETAMETASONE DIPROPIONATE 15 GM TUBE TP SCH ×2 (09:07→17:24)
[2016-10-15 16:00] VITALS: BP 143/61
[2016-10-15 20:00] VITALS: BP 118/68
[2016-10-15 20:06] VITALS: BP 118/68
[2016-10-15] MEDS: ATORVASTATIN 10 MG TABLET PO SCH (21:55)
[2016-10-15] MEDS: MONTELUKAST SODIUM (10MG) 10 MG TABLET PO SCH (21:55)
[2016-10-16] MEDS: ALBUTEROL HALF STRENGTH 1.25 MG/3 ML VIAL.NEB NEB SCH ×4 (02:06→21:19)
[2016-10-16] MEDS: IPRATROPIUM NEB FS 0.5 MG/2.5 ML AMPUL.NEB INH SCH ×4 (02:07→21:19)
[2016-10-16] MEDS: QUETIAPINE FUMARATE 25 MG TABLET PO PRN ×3 (02:49→21:39)
[2016-10-16] MEDS: hydrALAZINE HCL 25 MG TABLET PO SCH ×3 (05:24→21:39)
[2016-10-16 08:00] VITALS: BP 173/70
[2016-10-16] MEDS: ASPIRIN EC 81 MG TABLET.DR PO SCH (08:28)
[2016-10-16] MEDS: PANTOPRAZOLE 40 MG TABLET.DR PO SCH (08:29)
[2016-10-16] MEDS: predniSONE 10 MG TABLET PO SCH (08:29)
[2016-10-16] MEDS: RENAL NOVASOURCE (8OZ) 1 EA BOX PO SCH ×2 (08:32→17:20)
[2016-10-16] MEDS: HYDROGEL DRESSING 90 GM TUBE TP SCH (08:34)
[2016-10-16] MEDS: CLOTRIMAZOLE/BETAMETASONE DIPROPIONATE 15 GM TUBE TP SCH ×2 (08:36→17:21)
[2016-10-16] MEDS: ISOSORBIDE DINITRATE (5MG) 5 MG TABLET PO SCH ×3 (09:00→17:20)
[2016-10-16] MEDS: CARVEDILOL 6.25 MG TABLET PO SCH ×2 (10:41→21:37)
[2016-10-16 16:00] VITALS: BP 132/55
[2016-10-16 20:00] VITALS: BP 122/59
[2016-10-16] MEDS: MONTELUKAST SODIUM (10MG) 10 MG TABLET PO SCH (21:36)
[2016-10-16] MEDS: ATORVASTATIN 10 MG TABLET PO SCH (21:39)
[2016-10-17] MEDS: IPRATROPIUM NEB FS 0.5 MG/2.5 ML AMPUL.NEB INH SCH ×4 (01:10→21:14)
[2016-10-17] MEDS: ALBUTEROL HALF STRENGTH 1.25 MG/3 ML VIAL.NEB NEB SCH ×4 (01:11→21:14)
[2016-10-17] MEDS: hydrALAZINE HCL 25 MG TABLET PO SCH ×3 (05:31→21:02)
[2016-10-17 08:00] VITALS: BP 148/54
[2016-10-17] MEDS: ASPIRIN EC 81 MG TABLET.DR PO SCH (09:03)
[2016-10-17] MEDS: HYDROGEL DRESSING 90 GM TUBE TP SCH (09:03)
[2016-10-17] MEDS: RENAL NOVASOURCE (8OZ) 1 EA BOX PO SCH ×2 (09:03→16:10)
[2016-10-17] MEDS: CARVEDILOL 6.25 MG TABLET PO SCH ×2 (09:04→21:01)
[2016-10-17] MEDS: PANTOPRAZOLE 40 MG TABLET.DR PO SCH (09:04)
[2016-10-17] MEDS: ISOSORBIDE DINITRATE (5MG) 5 MG TABLET PO SCH ×3 (09:04→17:57)
[2016-10-17] MEDS: predniSONE 10 MG TABLET PO SCH (09:04)
[2016-10-17] MEDS: CLOTRIMAZOLE/BETAMETASONE DIPROPIONATE 15 GM TUBE TP SCH ×2 (09:05→18:07)
[2016-10-17] MEDS: QUETIAPINE FUMARATE 25 MG TABLET PO PRN (10:19)
[2016-10-17 12:45] VITALS: BP 148/61
[2016-10-17 16:00] VITALS: BP 146/70
[2016-10-17 16:01] VITALS: BP 146/70
[2016-10-17] MEDS ORDERED: EPOETIN ALFA (10,000 UNIT) 10,000 UNIT/ML VIAL SQ ONE (18:00)
[2016-10-17 20:00] VITALS: BP 154/60
[2016-10-17] MEDS ORDERED: IV NS 0.9% 1,000 ML ONE (20:22)
[2016-10-17] MEDS: ATORVASTATIN 10 MG TABLET PO SCH (21:01)
[2016-10-17] MEDS: MONTELUKAST SODIUM (10MG) 10 MG TABLET PO SCH (21:04)
[2016-10-18] MEDS: ALBUTEROL HALF STRENGTH 1.25 MG/3 ML VIAL.NEB NEB SCH ×4 (01:30→20:52)
[2016-10-18] MEDS: IPRATROPIUM NEB FS 0.5 MG/2.5 ML AMPUL.NEB INH SCH ×4 (01:30→20:53)
[2016-10-18 01:47] VITALS: BP 138/59
[2016-10-18] MEDS: hydrALAZINE HCL 25 MG TABLET PO SCH ×3 (04:39→20:40)
[2016-10-18] MEDS: ACETAMINOPHEN 325 MG TABLET PO PRN ×2 (07:00→19:12)
[2016-10-18 08:00] VITALS: BP 148/60
[2016-10-18] MEDS: CARVEDILOL 6.25 MG TABLET PO SCH ×2 (09:00→21:00)
[2016-10-18] MEDS: RENAL NOVASOURCE (8OZ) 1 EA BOX PO SCH ×2 (09:57→17:55)
[2016-10-18] MEDS: CLOTRIMAZOLE/BETAMETASONE DIPROPIONATE 15 GM TUBE TP SCH ×2 (09:57→17:56)
[2016-10-18] MEDS: ASPIRIN EC 81 MG TABLET.DR PO SCH (09:57)
[2016-10-18] MEDS: predniSONE 10 MG TABLET PO SCH (09:57)
[2016-10-18] MEDS: ISOSORBIDE DINITRATE (5MG) 5 MG TABLET PO SCH ×3 (09:58→17:55)
[2016-10-18] MEDS: PANTOPRAZOLE 40 MG TABLET.DR PO SCH (10:02)
[2016-10-18] MEDS: HYDROGEL DRESSING 90 GM TUBE TP SCH (10:03)
[2016-10-18 16:14] VITALS: BP 155/74
[2016-10-18] MEDS: LOPERAMIDE HCL (2 MG CAP) 2 MG CAPSULE PO PRN (19:12)
[2016-10-18 19:27] VITALS: BP 143/61
[2016-10-18] MEDS: MONTELUKAST SODIUM (10MG) 10 MG TABLET PO SCH (21:42)
[2016-10-18] MEDS: ATORVASTATIN 10 MG TABLET PO SCH (21:42)
[2016-10-19] MEDS: ALBUTEROL HALF STRENGTH 1.25 MG/3 ML VIAL.NEB NEB SCH ×4 (01:24→21:19)
[2016-10-19] MEDS: IPRATROPIUM NEB FS 0.5 MG/2.5 ML AMPUL.NEB INH SCH ×4 (01:24→21:19)
[2016-10-19 04:00] VITALS: BP 158/66
[2016-10-19] MEDS: hydrALAZINE HCL 25 MG TABLET PO SCH ×3 (04:13→21:52)
[2016-10-19 08:00] VITALS: BP 158/75
[2016-10-19] MEDS: PANTOPRAZOLE 40 MG TABLET.DR PO SCH (08:31)
[2016-10-19] MEDS: RENAL NOVASOURCE (8OZ) 1 EA BOX PO SCH ×2 (08:31→16:13)
[2016-10-19] MEDS: predniSONE 10 MG TABLET PO SCH (08:31)
[2016-10-19] MEDS: ASPIRIN EC 81 MG TABLET.DR PO SCH (08:32)
[2016-10-19] MEDS: ISOSORBIDE DINITRATE (5MG) 5 MG TABLET PO SCH ×3 (08:32→16:13)
[2016-10-19] MEDS: CARVEDILOL 6.25 MG TABLET PO SCH ×2 (08:33→21:52)
[2016-10-19] MEDS: CLOTRIMAZOLE/BETAMETASONE DIPROPIONATE 15 GM TUBE TP SCH ×2 (08:33→16:14)
[2016-10-19 16:00] VITALS: BP 119/43
[2016-10-19 20:00] VITALS: BP 134/70
[2016-10-19] MEDS: ATORVASTATIN 10 MG TABLET PO SCH (21:51)
[2016-10-19] MEDS: MONTELUKAST SODIUM (10MG) 10 MG TABLET PO SCH (21:52)
[2016-10-20] MEDS: IPRATROPIUM NEB FS 0.5 MG/2.5 ML AMPUL.NEB INH SCH ×3 (01:30→13:30)
[2016-10-20] MEDS: ALBUTEROL HALF STRENGTH 1.25 MG/3 ML VIAL.NEB NEB SCH ×3 (01:30→13:57)
[2016-10-20 04:36] VITALS: BP 149/58
[2016-10-20] MEDS: hydrALAZINE HCL 25 MG TABLET PO SCH ×2 (05:44→12:05)
[2016-10-20 07:53] VITALS: BP 126/55
[2016-10-20 07:55] VITALS: BP 126/55
[2016-10-20] MEDS: CARVEDILOL 6.25 MG TABLET PO SCH ×2 (08:39→10:00)
[2016-10-20] MEDS: predniSONE 10 MG TABLET PO SCH (08:39)
[2016-10-20] MEDS: ASPIRIN EC 81 MG TABLET.DR PO SCH (08:40)
[2016-10-20] MEDS: PANTOPRAZOLE 40 MG TABLET.DR PO SCH (08:40)
[2016-10-20] MEDS: ISOSORBIDE DINITRATE (5MG) 5 MG TABLET PO SCH ×3 (08:40→17:00)
[2016-10-20] MEDS: RENAL NOVASOURCE (8OZ) 1 EA BOX PO SCH ×2 (08:40→17:00)
[2016-10-20] MEDS: CLOTRIMAZOLE/BETAMETASONE DIPROPIONATE 15 GM TUBE TP SCH (08:41)
[2016-10-20 16:00] VITALS: BP 107/45
[2016-10-20 17:00] VITALS: BP 117/44
== END 2016-10-20 17:21 | DRG 193 ==
LOC: ER 12:00 → MEDSG2 14:03 → MED 10-15 06:29 → MEDSG2 10-18 00:56
PROVIDERS: ADMIT Internal Medicine; ATTEND Internal Medicine
PROC: 5A1D60Z (ICD-10-PCS; principal; 2016-10-06)
DX: J18.9 Pneumonia, unspecified organism (principal); N18.6 End stage renal disease; J96.01 Acute respiratory failure with hypoxia; I12.0 Hypertensive chronic kidney disease with stage 5 chronic kidney disease or end stage renal disease; J44.0 Chronic obstructive pulmonary disease with (acute) lower respiratory infection; I50.42 Chronic combined systolic (congestive) and diastolic (congestive) heart failure; N39.0 Urinary tract infection, site not specified; E46 Unspecified protein-calorie malnutrition; Z99.2 Dependence on renal dialysis; Z87.891 Personal history of nicotine dependence; Z87.11 Personal history of peptic ulcer disease; I44.7 Left bundle-branch block, unspecified; I25.2 Old myocardial infarction; Z95.1 Presence of aortocoronary bypass graft; Z87.440 Personal history of urinary (tract) infections; D63.8 Anemia in other chronic diseases classified elsewhere; F29 Unspecified psychosis not due to a substance or known physiological condition; E11.22 Type 2 diabetes mellitus with diabetic chronic kidney disease; E03.9 Hypothyroidism, unspecified; E11.51 Type 2 diabetes mellitus with diabetic peripheral angiopathy without gangrene; E87.5 Hyperkalemia; F41.9 Anxiety disorder, unspecified; I25.10 Atherosclerotic heart disease of native coronary artery without angina pectoris; L30.8 Other specified dermatitis; Z79.82 Long term (current) use of aspirin
CPT/HCPCS: 36415; 36600; 71010-TC; 78582; 80048-TC; 80076-TC; 80202-TC; 81000-TC; 82803-TC; 82962-TC; 83735-TC; 83880; 84100-TC; 85025-TC; 85730-TC; 87040-TC; 87081-TC; 87086-TC; 90935-TC; 93307-TC; 94799-TC; 97001-TC; 97110-TC; 97530-TC; A4217; A4606; A6248; A6403; A9540; A9567; C1750; G0480; G6039-TC; J0692; J0885; J1644; J3370; J7030; J7050; J7060; Z7610